=== PATIENT | male | born 1940 | race Caucasian/White ===

== ENCOUNTER → 2016-11-23 | Outpatient (CLI) | payer OTHER ==
--- NOTE | 2016-11-25 11:14 | MR ---
MRI Upper Extremity, Right Shoulder History: Right shoulder pain. Evaluate for rotator cuff tear. ICD 10 code M75.121. Technique: MRI was performed of the right shoulder using a 3 [employer] MRI system. Oblique coronal, obliq ue sagittal, and axial images were obtained with standard imaging sequences. Findings: Acromioclavicular Region: Moderate degenerative change is seen at the acromioclavicular joint. Anteri or curve and lateral downslope to the acromion. Subacromial spur. Subacromial/subdeltoid fluid collec tion. Rotator Cuff: There is complete tear with retraction of the supraspinatus tendon and complete versus near complete tear with retraction of the infraspinatus tendon 4 cm. Question minimal residual edge grinder ior fibers of the infraspinatus tendon. There is atrophy of the supraspinatus and infraspinatus muscl e. Humeral head is high riding through this tear articulating with the acromion. There is full-thickn ess tear with retraction of the distal superior fibers of the subscapularis tendon, retracted 2 cm. T here is attenuation in the remaining inferior fibers of the infraspinatus. Mild edema at the distal t eres minor with mild attenuation of the distal superior fibers. Biceps tendon: There is abnormal signal intensity and attenuation of the long head biceps tendon at t he inferior aspect of the bicipital groove. It is not well seen in the more superior aspect of the bi cipital groove or intraarticular. Glenohumeral Joint: There is fraying and irregular partial tear of the inferior labrum extending to t he anterior inferior labrum. There is also partial tear in the superior labrum at the biceps anchor e xtending posteriorly to the 11 o'clock position. There is a glenohumeral joint effusion with synovial proliferation. Minimal cartilage thinning is seen in the humeral head and glenoid. Mild periarticula r spurring in the glenoid. Labral cyst is seen inferior to the glenoid measuring 8 mm. General: No evidence for Hill-Sachs deformity. No significant axillary lymphadenopathy. Impression: 1. Complete tear with retraction of the supraspinatus tendon and near complete versus complete tear o f the infraspinatus tendon with retraction. Humeral head is high riding through this tear articulatin g with the acromion. 2. Large full-thickness tear of the distal superior fibers of the subscapularis tendon and partial te ar of the remaining fibers. 3. Mild strain and partial tear teres minor tendon at the distal superior fibers. 4. Long head biceps tendon is not well seen intraarticular at the superior aspect of the bicipital gr oove and may be torn and retracted. Attenuated tendon is seen at the inferior aspect of the bicipital groove. 4. Mild degenerative change glenohumeral joint. Irregular partial tear of the inferior labrum with ad jacent perilabral cyst. Partial tear of the anterior inferior labrum and posterior superior labrum. G lenohumeral joint effusion with synovial proliferation. 6. Moderate degenerative change, acromioclavicular joint. Anterior curve to the acromion. Subacromial spur.
== END ==
LOC: FIMAGING 15:31
PROVIDERS: ATTEND Orthopaedic Surgery
DX: M75.121 Complete rotator cuff tear or rupture of right shoulder, not specified as traumatic (principal)

== ENCOUNTER → 2017-02-11 | Outpatient (CLI) | payer OTHER | LOC: FIMAGING 07:12 | PROVIDERS: ATTEND Physician Assistant | DX: M25.812 Other specified joint disorders, left shoulder (principal); M75.92 Shoulder lesion, unspecified, left shoulder ==

== ENCOUNTER → 2017-08-29 | Outpatient (CLI) | payer OTHER | LOC: FIMAGING 19:11 | PROVIDERS: ATTEND Physical Medicine & Rehabilitation | DX: M50.30 Other cervical disc degeneration, unspecified cervical region (principal); M48.02 Spinal stenosis, cervical region; M99.71 Connective tissue and disc stenosis of intervertebral foramina of cervical region ==

== ENCOUNTER → 2018-03-18 | Outpatient (CLI) | payer OTHER | LOC: BHFA 13:30 | PROVIDERS: ATTEND Internal Medicine Cardiovascular Disease | DX: I20.0 Unstable angina (principal); I11.9 Hypertensive heart disease without heart failure; I43 Cardiomyopathy in diseases classified elsewhere; I25.810 Atherosclerosis of coronary artery bypass graft(s) without angina pectoris ==

== ENCOUNTER 2018-03-20 06:44 | Day surgery (SDC) | payer OTHER ==
[~2018-03-20 06:44] MED LIST: ACETAMINOPHEN 325 MG TAB PO PRN; ASPIRIN EC 325 MG TAB PO ONE; DIAZEPAM 5 MG TAB PO ONE; FAMOTIDINE 20 MG TAB PO ONE; NITROGLYCERIN 0.4 MG BTL SL PRN; NS 1,000 ML IV SCH; TEMAZEPAM 15 MG CAP PO PRN; diphenhydrAMINE 25 MG CAP PO ONE
--- NOTE | 2018-03-20 07:07 | CPEKG ---
Heart Rate: 66 RR Interval: 909 P-R Interval: 192 QRSD Interval: 102 QT Interval: 396 QTC Interval: 415 P Micanopy: 57 QRS Micanopy: -38 T Wave Micanopy: 17 EKG Severity - OTHERWISE NORMAL ECG - EKG Impression: SINUS RHYTHM EKG Impression: LEFT AXIS DEVIATION Electronically Signed By: Justice Cheatham 20-Mar-2018 07:34:56
[2018-03-20 07:19] LABS: PLATELET COUNT 298 10^3/uL (150-400)
[2018-03-20 07:26] LABS: INR 1.01 (0.83-1.16); PROTIME(PATIENT) 13.5 SEC (12.0-15.0)
[2018-03-20] MEDS ORDERED: LIDOCAINE 1% 300 MG/30 ML SDV ONE (08:51)
[2018-03-20] MEDS ORDERED: fentaNYL 100 MCG/2 ML INJ ONE (08:51)
--- NOTE | 2018-03-20 08:51 | PDHPUP ---
History & Physical Update H&P update statement: This history and physical update is based on an assessment of the patient which was completed after admission or registration (within 24 hours), but prior to the surgery/procedure. H&P update: H&P reviewed & patient examined, no change in patient's condition since H&P completed
--- NOTE | 2018-03-20 08:51 | PDPROPOC ---
Sedation Plan of Care Sedation Plan of Care: vital signs stable, mental status noted, patient educated of risks, benefits, alternatives, patient can tolerate sedation ASA Classification: ASA 2 Planned drugs: fentanyl, midazolam Mallampati Score: Class 2 Mallampati Reference Image: Patient passed 3-3-2 rule?: Yes
[2018-03-20] MEDS ORDERED: MIDAZOLAM 2 MG/2 ML VIAL ONE ×2 (08:52→09:59)
[2018-03-20] MEDS ORDERED: IOPAMIDOL (ISOVUE-370) 150 ML BTL IV ONE (08:52)
--- NOTE | 2018-03-20 09:40 | ECHO ---
[email or web address] [address] [address] Main: [phone] Fax: Transthoracic Echocardiogram Name: MICHELLE MARY MR#: [id number] Study Date: 03/20/2018 Study Time: 07:41 AM Date of : 1940 Age: 77 year(s) Height: 162.6 cm (64 in.) Weight: 68.95 kg (152 lb.) BSA: 1.74 m2 Gender: Male Examination: Echo Indication: exertional angina; h/o CABG h/o mild-mod TR on past [place]os [facility] [place] Quality: Adequate Contrast: Requested by: Marvin Delgado BP: 139 mmHg/75 mmHg Heart Rate: Rhythm: Normal sinus rhythm Indication: exertional angina; h/o CABG h/o mild-mod TR on past echos [facility] [place] Procedure 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 Borderline concentric LV hypertrophy. Normal global systolic LV function. EF is 56 %. No regional wall motion abnormality. Grade 1 diastolic dysfunction (abnormal relaxation). Normal size right ventricle. Normal RV function. Mild mitral valve regurgitation is present. Mild aortic valve regurgitation is present. Mild to moderate tricuspid valve regurgitation. Right ventricular systolic pressure measures 39mmHg. Borderline elevated pumonary artery pressure. Prior study not available for reviewe Measurements: Chambers Valvular Assessment AV/MV Valvular Assessment TV/PV Normal Normal Normal Name Value Range Name Value Range Name Value Range Ao Radha (MM): 3.2 cm (2.2 cm-3.7 AV Vmax: 1.05 m/s (1 m/s-1.7 TR Vmax: 2.90 mm/s ( - ) cm) m/s) TR PGmax: 34 mmHg ( - ) IVSd (2D): 1.0 cm (0.6 cm-1.1 AV maxP mmHg ( - ) syst. PAP: 39 mmHg ( - ) cm) LVOT Vmax: 0.81 m/s (0.7 m/s-1.1 PV Vmax: 0.66 m/s (0.6 m/s-0.9 LVDd (2D): 4.0 cm (4.2 cm-5.9 m/s) m/s) cm) AR (PHT): 912 ms ( - ) PV PGmax: 2 mmHg ( - ) LVDs (2D): 2.3 cm (2.1 cm-4 MV E Vmax: 0.67 m/s ( - ) cm) MV A Vmax: 1.03 m/s ( - ) LVPWd (2D): 1.0 cm (0.6 cm-1 MV E/A: 0.65 ( - ) cm) Patient: MICHELLE MARY Study Date: 03/20/2018 Page 1 of 2 07:41 AM LVEF (BP): 56 % (>=55 %) RVDd(2D): 3.5 cm (1.9 cm-3.8 cmmm) Continued Measurements: Chambers Valvular Assessment AV/MV Valvular Assessment TV/PV Name Value Name Value Name Value LADs: 3.4 cm MV DecTime: 194 m/s CVP (est.): 5 mmHg LADs Lon.9 cm MV E' Septal: 0.06 m/s LA Area: 14.8 cm2 MV E/E' Septal: 11.00 LA Volume: 50 ml MV E/E' Lateral: 7.30 LA Volume Index: 28.7 ml/m2 AR Vmax: 2.79 cm/s TAPSE: 1.8 cm RA Area: 15.5 cm2 Additional Vessels Name Value Ao Ascendin.0 cm Findings: Left Ventricle: Normal size left ventricle. Borderline concentric LV hypertrophy. Normal global systolic LV function. EF is 56 %. No regional wall motion abnormality. Grade 1 diastolic dysfunction (abnormal relaxation). Right Ventricle: Normal size right ventricle. Normal RV function. Left Atrium: The left atrium is normal in size. Right Atrium: The right atrium is normal in size. Mitral Valve: There is mild thickening of the mitral valve leaflets. Mild mitral valve regurgitation is present. No mitral stenosis is present. Aortic Valve: The aortic valve is tri-leaflet. Mild aortic valve regurgitation is present. No aortic valve stenosis is present. Tricuspid Valve: The tricuspid valve appears normal. Mild to moderate tricuspid valve regurgitation. Right ventricular systolic pressure measures 39mmHg. Borderline elevated pumonary artery pressure. Pulmonic Valve: The pulmonic valve is normal in appearance and function. There is no pulmonic regurgitation seen. Aorta: Normal size aortic root measuring 3.2 cm. Normal size ascending aorta measuring 3.0 cm. Pericardium: No pericardial effusion. Exam Comments: Previoius echo at [facility]. (No Signature Object) Patient: MICHELLE MARY Study Date: 03/20/2018 Page 2 of 2 07:41 AM [id number]
[2018-03-20] MEDS ORDERED: ONDANSETRON 4 MG/2 ML VIAL IVP PRN (10:27)
[2018-03-20] MEDS ORDERED: ATROPINE SULFATE 1 MG/10 ML SYR IVP PRN (10:27)
[2018-03-20] MEDS ORDERED: HYDROCODONE/APAP 5/325 TAB PO PRN (10:27)
--- NOTE | 2018-03-20 11:46 | PDDXCAT ---
Diagnostic Cath Note - . 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 LAD: Mid-LAD 100%; small first diagonal with diffuse 60-70%. LCX: Minimal irregularities proximal and mid; small final posterolateral branch with 70-80%. RCA: Proximal 100%. rSVG: SVG to distal RCA patent; target vessel with mild irregularities. Two other SVGs occluded. ROY: ROY to LAD patent; target vessel with mild irregularities. EDP: 24 mmHg LVEF: 60% Wall motion: Normal Complications: None Estimated blood loss: <50ml Closure method: Angioseal Assessment: 1) Normal LV systolic function. 2) CAD as described above. 3) Two of four bypass grafts patent. Plan: The patient has patent bypass grafts to the LAD and RCA. He has multivessel disease the first diagonal and a circumflex posterolateral. Both these vessels are very small. The posterior root could be an old piece on. Will add acting nitrate therapy to his treatment. Will arrange for outpatient nuclear stress test to assess ischemic burden and location. Patient Problems: Problems Problem Status Onset Primary osteoarthritis of right hip Acute
[2018-03-21] MEDS ORDERED: ISOSORBIDE MONONITRATE 30 MG TAB.SR PO SCH (09:00)
== END 2018-03-20 14:42 | disposition home or self-care (01) ==
LOC: FCATH 06:44
PROVIDERS: ATTEND Internal Medicine Interventional Cardiology
PROC: B2111ZZ Fluoroscopy of Multiple Coronary Arteries using Low Osmolar Contrast (ICD-10-PCS; principal; 2018-03-20)
PROC: B2151ZZ Fluoroscopy of Left Heart using Low Osmolar Contrast (ICD-10-PCS; principal; 2018-03-20)
PROC: 4A023N7 Measurement of Cardiac Sampling and Pressure, Left Heart, Percutaneous Approach (ICD-10-PCS; principal; 2018-03-20)
DX: I11.9 Hypertensive heart disease without heart failure (principal); I43 Cardiomyopathy in diseases classified elsewhere; I20.0 Unstable angina; I25.810 Atherosclerosis of coronary artery bypass graft(s) without angina pectoris
CPT/HCPCS: C1760; J1644; J2250; J3010; Q9967

== ENCOUNTER → 2018-04-17 | Outpatient (CLI) | payer OTHER | LOC: BHFA 09:00 | PROVIDERS: ATTEND Internal Medicine Cardiovascular Disease | DX: I25.10 Atherosclerotic heart disease of native coronary artery without angina pectoris (principal); I20.0 Unstable angina | CPT/HCPCS: 78452; 93017; A9500 ==